=== PATIENT | male | born 1940 | race Caucasian/White ===

== ENCOUNTER 2017-07-27 13:37 | Inpatient (IN) | payer MEDICARE ==
[~2017-07-27] VITALS: Ht 172.7 cm; Wt 60.9 kg
[2017-07-27] MEDS ORDERED: BUME1TAB17 PO (13:57)
[2017-07-27] MEDS ORDERED: MEMA10TA11 PO (13:57)
[2017-07-27] MEDS ORDERED: ATOR40TA28 PO (13:57)
[2017-07-27] MEDS ORDERED: MELA5TAB3 PO (13:57)
[2017-07-27] MEDS ORDERED: LOSA50TA37 PO (13:57)
[2017-07-27] MEDS ORDERED: CITA10TA68 PO (13:57)
[2017-07-27] MEDS ORDERED: TRAM50TA4 PO (13:57)
[2017-07-27] MEDS ORDERED: DOCU250C91 PO (13:57)
[2017-07-27] MEDS ORDERED: ACET325C PR (13:57)
[2017-07-27] MEDS ORDERED: METO25XL PO (13:57)
[2017-07-27] MEDS ORDERED: ASPI-1182 PO (13:57)
[2017-07-27] MEDS ORDERED: SPIR25 PO (13:57)
[2017-07-27 15:46] LABS: BASOPHILS % (AUTO) 1.1 % (0.0-2.0); EOSINOPHILS % (AUTO) 1.9 % (1.0-6.0); HEMATOCRIT 38.6 % (41-53); HEMOGLOBIN 12.9 g/dL (13.5-17.5); LYMPHOCYTES # (AUTO) 0.6 K/uL (1.0-4.8); LYMPHOCYTES % (AUTO) 9.3 % (22.0-44.0); MEAN CORPUSCULAR HEMOGLOBIN 29.7 pg (26.0-34.0); MEAN CORPUSCULAR HGB CONC 33.3 G/dL (31.0-37.0); MEAN CORPUSCULAR VOLUME 89 fL (80-100); MONOCYTES # (AUTO) 0.7 K/uL (0.1-1.0); MONOCYTES % (AUTO) 11.6 % (2.0-9.0); NEUTROPHILS # (AUTO) 4.8 K/uL (1.8-7.7); NEUTROPHILS % (AUTO) 76.1 % (40.0-70.0); PLATELET COUNT (AUTO) 192 K/uL (150-450); RED BLOOD CELL COUNT(AUTO) 4.33 MIL/uL (4.50-5.90); RED CELL DISTRIBUTION WIDTH 19.7 % (11.5-14.5)
[2017-07-27 15:55] LABS: CREATININE 1.49 mg/dL (0.60-1.30); POTASSIUM 4.1 mmol/L (3.5-5.1)
[2017-07-27 16:00] LABS: ALBUMIN 3.2 g/dL (3.4-5.0); BILIRUBIN,TOTAL 0.8 mg/dL (0.1-1.0)
[2017-07-27 16:05] LABS: TROPONIN I 0.24 ng/mL (0.00-0.05)
[2017-07-27 16:07] LABS: APPEARANCE,URINE CLEAR (CLEAR); BILIRUBIN,URINE NEGATIVE (NEGATIVE); GLUCOSE, URINE (UA) NEGATIVE (NEGATIVE); KETONES,URINE NEGATIVE (NEGATIVE); LEUKOCYTE ESTERASE ,URINE SMALL (NEGATIVE); NITRATE,URINE NEGATIVE (NEGATIVE); OCCULT BLOOD,URINE TRACE (NEGATIVE); PROTEIN,URINE POS 1+ (NEGATIVE)
[2017-07-27 16:17] LABS: B-TYPE NATRIURETIC PEPTIDE 1540 pg/mL (0-100)
[2017-07-27 16:27] LABS: BACTERIA,URINE Rare /HPF (None Seen); SQUAMOUS EPITHELIAL CELL,UR Rare /LPF (None Seen)
[2017-07-27] MEDS ORDERED: LACTULOSE 20 GM/30 ML SOLUTION UDCUP PO ONE (16:30)
[2017-07-27] MEDS ORDERED: ASPIRIN 81 MG CHEWABLE TABLET PO ONE (16:30)
[2017-07-27] MEDS ORDERED: NITROGLYCERIN 2% (1 GM=INCH) PACKET TP ONE (17:00)
[2017-07-27] MEDS ORDERED: CIPROFLOXACIN HCL 250 MG TABLET PO ONE (17:15)
[2017-07-27] MEDS ORDERED: FUROSEMIDE 40 MG/4 ML VIAL IVP ONE (18:45)
[2017-07-27] MEDS ORDERED: ACETAMINOPHEN 325 MG TABLET PO PRN (19:00)
[2017-07-27] MEDS ORDERED: ONDANSETRON HCL 4 MG/2 ML VIAL IVP PRN ×2 (19:00→21:30)
[2017-07-27] MEDS ORDERED: 0.9% SODIUM CHLORIDE 10 ML SYRINGE IVP PRN (19:00)
[2017-07-27] MEDS ORDERED: LORazepam 2 MG/ML VIAL IVP ONE (19:30)
[2017-07-27 20:06] VITALS: BP 135/79
[2017-07-27] MEDS ORDERED: METOPROLOL TARTRATE 25 MG TABLET PO SCH (21:00)
[2017-07-27] MEDS ORDERED: BISACODYL 10 MG RECTAL RECTAL SUPPOSITORY PR PRN (21:30)
[2017-07-27] MEDS ORDERED: ALBUTEROL SULFATE 2.5 MG/0.5 ML NEB SOLUTION NEB PRN (21:30)
[2017-07-27] MEDS ORDERED: HALOPERIDOL LACTATE 5 MG/ML VIAL IM ONE (21:45)
[2017-07-27] MEDS ORDERED: SODIUM CHLORIDE 0.9% 0 ML IV ONE (21:54)
[2017-07-27] MEDS: CefTRIAXone SODIUM 1 GM in DEXTROSE 5%-WATER 10 ML IV SCH (21:56)
[2017-07-27] MEDS ORDERED: PERMETHRIN 5% 60 GM CREAM TP ONE (22:00)
[2017-07-27] MEDS: LORazepam 2 MG/ML VIAL IVP PRN (23:22)
[2017-07-27 23:41] VITALS: BP 124/82
[2017-07-28 04:00] VITALS: BP 140/96
[2017-07-28] MEDS: LORazepam 2 MG/ML VIAL IVP PRN ×4 (05:13→22:49)
[2017-07-28 07:12] LABS: EOSINOPHILS % (AUTO) 0.8 % (1.0-6.0); HEMATOCRIT 34.5 % (41-53); HEMOGLOBIN 11.4 g/dL (13.5-17.5); LYMPHOCYTES # (AUTO) 0.4 K/uL (1.0-4.8); LYMPHOCYTES % (AUTO) 6.3 % (22.0-44.0); MEAN CORPUSCULAR HEMOGLOBIN 29.4 pg (26.0-34.0); MEAN CORPUSCULAR HGB CONC 33.1 G/dL (31.0-37.0); MEAN CORPUSCULAR VOLUME 89 fL (80-100); MONOCYTES # (AUTO) 0.7 K/uL (0.1-1.0); NEUTROPHILS # (AUTO) 5.6 K/uL (1.8-7.7); NEUTROPHILS % (AUTO) 81.9 % (40.0-70.0); PLATELET COUNT (AUTO) 187 K/uL (150-450); RED BLOOD CELL COUNT(AUTO) 3.88 MIL/uL (4.50-5.90); RED CELL DISTRIBUTION WIDTH 19.6 % (11.5-14.5)
[2017-07-28 07:29] VITALS: BP 129/82
[2017-07-28 07:56] LABS: ALBUMIN 2.9 g/dL (3.4-5.0); BILIRUBIN,TOTAL 0.8 mg/dL (0.1-1.0); CALCIUM, TOTAL 8.2 mg/dL (8.8-10.5); CREATININE 1.23 mg/dL (0.60-1.30); MAGNESIUM 2.5 mg/dL (1.80-2.40); POTASSIUM 3.9 mmol/L (3.5-5.1); TOTAL PROTEIN, SERUM 7.1 g/dL (6.4-8.2)
[2017-07-28] MEDS: DOCUSATE SODIUM 100 MG CAPSULE PO SCH ×2 (09:00→21:00)
[2017-07-28] MEDS ORDERED: MEMANTINE HCL 10 MG TABLET PO SCH (09:00)
[2017-07-28] MEDS: LOSARTAN POTASSIUM 50 MG TABLET PO SCH (09:00)
[2017-07-28] MEDS: ATORVASTATIN CALCIUM 20 MG TABLET PO SCH (09:00)
[2017-07-28] MEDS: PANTOPRAZOLE SODIUM 40 MG DR TABLET PO SCH (09:00)
[2017-07-28] MEDS: ASPIRIN 81 MG CHEWABLE TABLET PO SCH (09:00)
[2017-07-28] MEDS: FUROSEMIDE 40 MG/4 ML VIAL IVP SCH (09:27)
[2017-07-28] MEDS: HEPARIN SODIUM,PORCINE 5,000 UNITS/ML VIAL SQ SCH ×2 (09:27→22:11)
[2017-07-28 10:48] VITALS: BP 156/76
[2017-07-28 15:10] VITALS: BP 139/93
[2017-07-28 19:36] VITALS: BP 158/97
[2017-07-28] MEDS: METOPROLOL TARTRATE 25 MG TABLET PO SCH (22:11)
[2017-07-28] MEDS: CefTRIAXone SODIUM 1 GM in DEXTROSE 5%-WATER 10 ML IV SCH (22:12)
[2017-07-29] VITALS (7 sets, daily range): BP systolic 115–153; BP diastolic 67–98
[2017-07-29 07:34] LABS: BASOPHILS % (AUTO) 0.9 % (0.0-2.0); EOSINOPHILS % (AUTO) 0.2 % (1.0-6.0); HEMATOCRIT 37.5 % (41-53); HEMOGLOBIN 12.5 g/dL (13.5-17.5); LYMPHOCYTES # (AUTO) 0.8 K/uL (1.0-4.8); LYMPHOCYTES % (AUTO) 9.7 % (22.0-44.0); MEAN CORPUSCULAR HEMOGLOBIN 29.5 pg (26.0-34.0); MEAN CORPUSCULAR HGB CONC 33.3 G/dL (31.0-37.0); MEAN CORPUSCULAR VOLUME 88 fL (80-100); MONOCYTES # (AUTO) 0.8 K/uL (0.1-1.0); MONOCYTES % (AUTO) 9.7 % (2.0-9.0); NEUTROPHILS # (AUTO) 6.5 K/uL (1.8-7.7); NEUTROPHILS % (AUTO) 79.5 % (40.0-70.0); PLATELET COUNT (AUTO) 209 K/uL (150-450); RED BLOOD CELL COUNT(AUTO) 4.24 MIL/uL (4.50-5.90); RED CELL DISTRIBUTION WIDTH 19.9 % (11.5-14.5)
[2017-07-29 07:57] LABS: BILIRUBIN,TOTAL 1.1 mg/dL (0.1-1.0); CALCIUM, TOTAL 8.7 mg/dL (8.8-10.5); CREATININE 1.37 mg/dL (0.60-1.30); MAGNESIUM 2.8 mg/dL (1.80-2.40); POTASSIUM 4.3 mmol/L (3.5-5.1); TOTAL PROTEIN, SERUM 7.5 g/dL (6.4-8.2)
[2017-07-29] MEDS: HEPARIN SODIUM,PORCINE 5,000 UNITS/ML VIAL SQ SCH ×2 (07:59→21:06)
[2017-07-29] MEDS: FUROSEMIDE 40 MG/4 ML VIAL IVP SCH (07:59)
[2017-07-29] MEDS: ATORVASTATIN CALCIUM 20 MG TABLET PO SCH (08:00)
[2017-07-29] MEDS: PANTOPRAZOLE SODIUM 40 MG DR TABLET PO SCH (08:00)
[2017-07-29] MEDS: LOSARTAN POTASSIUM 50 MG TABLET PO SCH (08:00)
[2017-07-29] MEDS: ASPIRIN 81 MG CHEWABLE TABLET PO SCH (08:00)
[2017-07-29] MEDS: METOPROLOL TARTRATE 25 MG TABLET PO SCH (08:00)
[2017-07-29] MEDS: DOCUSATE SODIUM 100 MG CAPSULE PO SCH ×2 (08:00→21:06)
[2017-07-29] MEDS ORDERED: METOPROLOL TARTRATE 25 MG TABLET PO ONE (08:15)
[2017-07-29] MEDS: LORazepam 2 MG/ML VIAL IVP PRN ×3 (09:00→21:09)
[2017-07-29] MEDS: METOPROLOL TARTRATE 50 MG TABLET PO SCH ×2 (09:00→21:06)
[2017-07-29] MEDS: CefTRIAXone SODIUM 1 GM in DEXTROSE 5%-WATER 10 ML IV SCH (21:12)
[2017-07-30 02:43] VITALS: BP 152/92
[2017-07-30] MEDS: LORazepam 2 MG/ML VIAL IVP PRN (02:44)
[2017-07-30 04:03] VITALS: BP 149/91
[2017-07-30 06:33] LABS: BASOPHILS % (AUTO) 1.1 % (0.0-2.0); EOSINOPHILS % (AUTO) 0.3 % (1.0-6.0); HEMATOCRIT 39.6 % (41-53); LYMPHOCYTES # (AUTO) 0.9 K/uL (1.0-4.8); LYMPHOCYTES % (AUTO) 10.3 % (22.0-44.0); MEAN CORPUSCULAR HEMOGLOBIN 28.9 pg (26.0-34.0); MEAN CORPUSCULAR HGB CONC 32.7 G/dL (31.0-37.0); MEAN CORPUSCULAR VOLUME 88 fL (80-100); MONOCYTES # (AUTO) 0.9 K/uL (0.1-1.0); MONOCYTES % (AUTO) 10.1 % (2.0-9.0); NEUTROPHILS # (AUTO) 6.9 K/uL (1.8-7.7); NEUTROPHILS % (AUTO) 78.2 % (40.0-70.0); PLATELET COUNT (AUTO) 227 K/uL (150-450); RED BLOOD CELL COUNT(AUTO) 4.48 MIL/uL (4.50-5.90)
[2017-07-30 06:56] LABS: CALCIUM, TOTAL 8.9 mg/dL (8.8-10.5); CREATININE 1.51 mg/dL (0.60-1.30); POTASSIUM 4.3 mmol/L (3.5-5.1)
[2017-07-30 07:29] VITALS: BP 138/91
[2017-07-30] MEDS: ATORVASTATIN CALCIUM 20 MG TABLET PO SCH (08:03)
[2017-07-30] MEDS: FUROSEMIDE 40 MG/4 ML VIAL IVP SCH (08:03)
[2017-07-30] MEDS: PANTOPRAZOLE SODIUM 40 MG DR TABLET PO SCH (08:03)
[2017-07-30] MEDS: HEPARIN SODIUM,PORCINE 5,000 UNITS/ML VIAL SQ SCH ×2 (08:03→21:48)
[2017-07-30] MEDS: METOPROLOL TARTRATE 50 MG TABLET PO SCH ×2 (08:03→21:48)
[2017-07-30] MEDS: DOCUSATE SODIUM 100 MG CAPSULE PO SCH ×2 (08:03→21:48)
[2017-07-30] MEDS: ASPIRIN 81 MG CHEWABLE TABLET PO SCH (08:03)
[2017-07-30 08:16] LABS: MAGNESIUM 2.9 mg/dL (1.80-2.40)
[2017-07-30] MEDS ORDERED: LOSARTAN POTASSIUM 50 MG TABLET PO SCH (09:00)
[2017-07-30 11:06] VITALS: BP 156/58
[2017-07-30] MEDS ORDERED: FUROSEMIDE 40 MG/4 ML VIAL IVP ONE (15:15)
[2017-07-30 15:31] VITALS: BP 172/75
[2017-07-30 20:41] VITALS: BP 144/89
[2017-07-30] MEDS: CefTRIAXone SODIUM 1 GM in DEXTROSE 5%-WATER 10 ML IV SCH (21:49)
[2017-07-31] VITALS (10 sets, daily range): BP systolic 132–162; BP diastolic 80–119
[2017-07-31 06:19] LABS: BASOPHILS % (AUTO) 1.4 % (0.0-2.0); EOSINOPHILS % (AUTO) 0.5 % (1.0-6.0); HEMATOCRIT 37.4 % (41-53); HEMOGLOBIN 12.3 g/dL (13.5-17.5); LYMPHOCYTES # (AUTO) 0.6 K/uL (1.0-4.8); LYMPHOCYTES % (AUTO) 7.6 % (22.0-44.0); MEAN CORPUSCULAR HEMOGLOBIN 29.3 pg (26.0-34.0); MEAN CORPUSCULAR HGB CONC 32.9 G/dL (31.0-37.0); MEAN CORPUSCULAR VOLUME 89 fL (80-100); MONOCYTES # (AUTO) 0.8 K/uL (0.1-1.0); MONOCYTES % (AUTO) 9.9 % (2.0-9.0); NEUTROPHILS # (AUTO) 6.5 K/uL (1.8-7.7); NEUTROPHILS % (AUTO) 80.6 % (40.0-70.0); PLATELET COUNT (AUTO) 220 K/uL (150-450); RED CELL DISTRIBUTION WIDTH 19.7 % (11.5-14.5)
[2017-07-31 07:03] LABS: ALBUMIN 2.7 g/dL (3.4-5.0); BILIRUBIN,TOTAL 0.8 mg/dL (0.1-1.0); CALCIUM, TOTAL 8.5 mg/dL (8.8-10.5); CREATININE 1.59 mg/dL (0.60-1.30); MAGNESIUM 2.7 mg/dL (1.80-2.40); POTASSIUM 3.7 mmol/L (3.5-5.1); TOTAL PROTEIN, SERUM 7.1 g/dL (6.4-8.2)
[2017-07-31] MEDS: ASPIRIN 81 MG CHEWABLE TABLET PO SCH (09:53)
[2017-07-31] MEDS: METOPROLOL SUCCINATE 50 MG ER TABLET PO SCH ×2 (09:53→22:32)
[2017-07-31] MEDS: DOCUSATE SODIUM 100 MG CAPSULE PO SCH ×2 (09:54→22:32)
[2017-07-31] MEDS: ATORVASTATIN CALCIUM 20 MG TABLET PO SCH (09:54)
[2017-07-31] MEDS: PANTOPRAZOLE SODIUM 40 MG DR TABLET PO SCH (09:54)
[2017-07-31] MEDS: LOSARTAN POTASSIUM 50 MG TABLET PO SCH (09:55)
[2017-07-31] MEDS: HEPARIN SODIUM,PORCINE 5,000 UNITS/ML VIAL SQ SCH ×2 (09:56→22:31)
[2017-07-31] MEDS: FUROSEMIDE 40 MG/4 ML VIAL IVP SCH (10:01)
[2017-07-31] MEDS ORDERED: DIGOXIN 250 MCG/ML 2 ML AMP IVP ONE (13:45)
[2017-07-31] MEDS ORDERED: DEXTROSE 5%-WATER 500 ML IV ONE (15:30)
[2017-07-31] MEDS: MAGNESIUM OXIDE 400 MG TABLET PO SCH (22:32)
[2017-07-31] MEDS: CefTRIAXone SODIUM 1 GM in DEXTROSE 5%-WATER 10 ML IV SCH (22:33)
[2017-08-01 04:11] VITALS: BP 118/65
[2017-08-01 06:50] LABS: BASOPHILS % (AUTO) 0.8 % (0.0-2.0); EOSINOPHILS % (AUTO) 0.9 % (1.0-6.0); HEMATOCRIT 38.3 % (41-53); HEMOGLOBIN 12.5 g/dL (13.5-17.5); LYMPHOCYTES # (AUTO) 0.6 K/uL (1.0-4.8); MEAN CORPUSCULAR HEMOGLOBIN 29.3 pg (26.0-34.0); MEAN CORPUSCULAR HGB CONC 32.6 G/dL (31.0-37.0); MEAN CORPUSCULAR VOLUME 90 fL (80-100); MONOCYTES # (AUTO) 0.7 K/uL (0.1-1.0); MONOCYTES % (AUTO) 9.2 % (2.0-9.0); NEUTROPHILS # (AUTO) 6.2 K/uL (1.8-7.7); NEUTROPHILS % (AUTO) 81.1 % (40.0-70.0); PLATELET COUNT (AUTO) 201 K/uL (150-450); RED BLOOD CELL COUNT(AUTO) 4.27 MIL/uL (4.50-5.90); RED CELL DISTRIBUTION WIDTH 19.7 % (11.5-14.5)
[2017-08-01 07:16] VITALS: BP 126/71
[2017-08-01 07:20] LABS: ALBUMIN 2.5 g/dL (3.4-5.0); BILIRUBIN,TOTAL 0.7 mg/dL (0.1-1.0); CALCIUM, TOTAL 8.4 mg/dL (8.8-10.5); CREATININE 1.48 mg/dL (0.60-1.30); MAGNESIUM 2.8 mg/dL (1.80-2.40); POTASSIUM 3.6 mmol/L (3.5-5.1); TOTAL PROTEIN, SERUM 6.6 g/dL (6.4-8.2)
[2017-08-01] MEDS ORDERED: DIGOXIN 250 MCG/ML 2 ML AMP IVP ONE (08:00)
[2017-08-01] MEDS: ASPIRIN 81 MG CHEWABLE TABLET PO SCH (08:52)
[2017-08-01] MEDS: DOCUSATE SODIUM 100 MG CAPSULE PO SCH ×2 (08:52→21:04)
[2017-08-01] MEDS: HEPARIN SODIUM,PORCINE 5,000 UNITS/ML VIAL SQ SCH ×2 (08:52→21:04)
[2017-08-01] MEDS: FUROSEMIDE 40 MG/4 ML VIAL IVP SCH (08:52)
[2017-08-01] MEDS: PANTOPRAZOLE SODIUM 40 MG DR TABLET PO SCH (08:52)
[2017-08-01] MEDS: MAGNESIUM OXIDE 400 MG TABLET PO SCH (08:52)
[2017-08-01] MEDS: METOPROLOL SUCCINATE 50 MG ER TABLET PO SCH ×2 (08:52→21:04)
[2017-08-01] MEDS: ATORVASTATIN CALCIUM 20 MG TABLET PO SCH (08:52)
[2017-08-01 10:55] VITALS: BP 132/76
[2017-08-01] MEDS: LOSARTAN POTASSIUM 50 MG TABLET PO SCH (11:47)
[2017-08-01 15:00] VITALS: BP 120/67
[2017-08-01] MEDS ORDERED: DEXTROSE 10%-WATER 500 ML IV ONE (15:00)
[2017-08-01] MEDS ORDERED: DEXTROSE 10%-WATER 500 ML IV SCH (15:15)
[2017-08-01 20:47] VITALS: BP 140/67
[2017-08-01] MEDS: CefTRIAXone SODIUM 1 GM in DEXTROSE 5%-WATER 10 ML IV SCH (22:16)
[2017-08-01 23:33] VITALS: BP 141/70
[2017-08-02 04:13] VITALS: BP 140/78
[2017-08-02 06:50] LABS: BASOPHILS % (AUTO) 0.7 % (0.0-2.0); EOSINOPHILS % (AUTO) 1.4 % (1.0-6.0); HEMATOCRIT 40.7 % (41-53); HEMOGLOBIN 13.2 g/dL (13.5-17.5); LYMPHOCYTES # (AUTO) 0.8 K/uL (1.0-4.8); LYMPHOCYTES % (AUTO) 9.7 % (22.0-44.0); MEAN CORPUSCULAR HEMOGLOBIN 29.2 pg (26.0-34.0); MEAN CORPUSCULAR HGB CONC 32.5 G/dL (31.0-37.0); MEAN CORPUSCULAR VOLUME 90 fL (80-100); MONOCYTES # (AUTO) 0.6 K/uL (0.1-1.0); MONOCYTES % (AUTO) 7.6 % (2.0-9.0); NEUTROPHILS # (AUTO) 6.5 K/uL (1.8-7.7); NEUTROPHILS % (AUTO) 80.6 % (40.0-70.0); PLATELET COUNT (AUTO) 205 K/uL (150-450); RED BLOOD CELL COUNT(AUTO) 4.52 MIL/uL (4.50-5.90)
[2017-08-02 07:21] VITALS: BP 141/78
[2017-08-02 07:27] LABS: ALBUMIN 2.5 g/dL (3.4-5.0); BILIRUBIN,TOTAL 0.8 mg/dL (0.1-1.0); CALCIUM, TOTAL 8.6 mg/dL (8.8-10.5); CREATININE 1.39 mg/dL (0.60-1.30); MAGNESIUM 2.8 mg/dL (1.80-2.40); POTASSIUM 3.8 mmol/L (3.5-5.1); TOTAL PROTEIN, SERUM 6.9 g/dL (6.4-8.2)
[2017-08-02] MEDS: ASPIRIN 81 MG CHEWABLE TABLET PO SCH (08:37)
[2017-08-02] MEDS: DOCUSATE SODIUM 100 MG CAPSULE PO SCH ×2 (08:38→19:53)
[2017-08-02] MEDS: ATORVASTATIN CALCIUM 20 MG TABLET PO SCH (08:38)
[2017-08-02] MEDS: PANTOPRAZOLE SODIUM 40 MG DR TABLET PO SCH (08:38)
[2017-08-02] MEDS: METOPROLOL SUCCINATE 50 MG ER TABLET PO SCH ×2 (08:38→19:54)
[2017-08-02] MEDS: HEPARIN SODIUM,PORCINE 5,000 UNITS/ML VIAL SQ SCH ×2 (08:40→19:53)
[2017-08-02] MEDS: FUROSEMIDE 40 MG/4 ML VIAL IVP SCH (08:40)
[2017-08-02] MEDS: LOSARTAN POTASSIUM 50 MG TABLET PO SCH (08:41)
[2017-08-02 11:00] VITALS: BP 153/87
[2017-08-02] MEDS: LORazepam 2 MG/ML VIAL IVP PRN ×2 (11:10→19:54)
[2017-08-02 14:47] VITALS: BP 161/97
[2017-08-02 19:26] VITALS: BP 150/78
[2017-08-02] MEDS: CefTRIAXone SODIUM 1 GM in DEXTROSE 5%-WATER 10 ML IV SCH (19:54)
[2017-08-03 00:06] VITALS: BP 158/91
[2017-08-03 05:06] VITALS: BP 148/89
[2017-08-03 07:22] VITALS: BP 159/80
[2017-08-03] MEDS: LOSARTAN POTASSIUM 50 MG TABLET PO SCH (08:42)
[2017-08-03] MEDS: HEPARIN SODIUM,PORCINE 5,000 UNITS/ML VIAL SQ SCH ×2 (08:42→22:19)
[2017-08-03] MEDS: METOPROLOL SUCCINATE 50 MG ER TABLET PO SCH ×2 (08:42→22:18)
[2017-08-03] MEDS: ATORVASTATIN CALCIUM 20 MG TABLET PO SCH (08:43)
[2017-08-03] MEDS: FUROSEMIDE 40 MG TABLET PO SCH (08:43)
[2017-08-03] MEDS: DOCUSATE SODIUM 100 MG CAPSULE PO SCH ×2 (08:43→22:18)
[2017-08-03] MEDS: PANTOPRAZOLE SODIUM 40 MG DR TABLET PO SCH (08:43)
[2017-08-03] MEDS: ASPIRIN 81 MG CHEWABLE TABLET PO SCH (08:43)
[2017-08-03 11:01] VITALS: BP 132/68
[2017-08-03 15:25] VITALS: BP 127/70
[2017-08-03 19:56] VITALS: BP 151/92
[2017-08-03] MEDS: CefTRIAXone SODIUM 1 GM in DEXTROSE 5%-WATER 10 ML IV SCH (22:19)
[2017-08-04] VITALS (8 sets, daily range): BP systolic 119–159; BP diastolic 79–109
[2017-08-04] MEDS: PANTOPRAZOLE SODIUM 40 MG DR TABLET PO SCH (08:05)
[2017-08-04] MEDS: HEPARIN SODIUM,PORCINE 5,000 UNITS/ML VIAL SQ SCH ×2 (08:05→20:34)
[2017-08-04] MEDS: ASPIRIN 81 MG CHEWABLE TABLET PO SCH (08:05)
[2017-08-04] MEDS: FUROSEMIDE 40 MG TABLET PO SCH (08:05)
[2017-08-04] MEDS: LOSARTAN POTASSIUM 50 MG TABLET PO SCH (08:05)
[2017-08-04] MEDS: ATORVASTATIN CALCIUM 20 MG TABLET PO SCH (08:06)
[2017-08-04] MEDS: METOPROLOL SUCCINATE 50 MG ER TABLET PO SCH ×2 (08:06→20:34)
[2017-08-04] MEDS: DOCUSATE SODIUM 100 MG CAPSULE PO SCH ×2 (08:06→20:34)
[2017-08-04] MEDS: LORazepam 2 MG/ML VIAL IVP PRN ×2 (17:06→20:35)
[2017-08-04] MEDS: CefTRIAXone SODIUM 1 GM in DEXTROSE 5%-WATER 10 ML IV SCH (21:49)
[2017-08-05 03:57] VITALS: BP 153/74
[2017-08-05] MEDS: ACETAMINOPHEN 325 MG TABLET PO PRN ×2 (04:10→08:35)
[2017-08-05 07:11] LABS: BASOPHILS % (AUTO) 0.4 % (0.0-2.0); EOSINOPHILS % (AUTO) 0.3 % (1.0-6.0); HEMATOCRIT 49.8 % (41-53); HEMOGLOBIN 16.1 g/dL (13.5-17.5); LYMPHOCYTES # (AUTO) 0.9 K/uL (1.0-4.8); LYMPHOCYTES % (AUTO) 6.7 % (22.0-44.0); MEAN CORPUSCULAR HEMOGLOBIN 29.3 pg (26.0-34.0); MEAN CORPUSCULAR HGB CONC 32.2 G/dL (31.0-37.0); MEAN CORPUSCULAR VOLUME 91 fL (80-100); MONOCYTES # (AUTO) 0.9 K/uL (0.1-1.0); MONOCYTES % (AUTO) 6.8 % (2.0-9.0); NEUTROPHILS # (AUTO) 11.6 K/uL (1.8-7.7); PLATELET COUNT (AUTO) 222 K/uL (150-450); RED BLOOD CELL COUNT(AUTO) 5.48 MIL/uL (4.50-5.90); RED CELL DISTRIBUTION WIDTH 20.7 % (11.5-14.5)
[2017-08-05 07:14] LABS: NEUTROPHILS % (AUTO) 85.8 % (40.0-70.0)
[2017-08-05 07:23] VITALS: BP 146/60
[2017-08-05 07:46] LABS: CALCIUM, TOTAL 9.1 mg/dL (8.8-10.5); CREATININE 1.47 mg/dL (0.60-1.30); POTASSIUM 3.7 mmol/L (3.5-5.1)
[2017-08-05] MEDS: HEPARIN SODIUM,PORCINE 5,000 UNITS/ML VIAL SQ SCH ×2 (08:33→20:00)
[2017-08-05] MEDS: ASPIRIN 81 MG CHEWABLE TABLET PO SCH (08:34)
[2017-08-05] MEDS: METOPROLOL SUCCINATE 50 MG ER TABLET PO SCH ×2 (08:34→20:00)
[2017-08-05] MEDS: DOCUSATE SODIUM 100 MG CAPSULE PO SCH ×2 (08:34→20:00)
[2017-08-05] MEDS: LOSARTAN POTASSIUM 50 MG TABLET PO SCH (08:34)
[2017-08-05] MEDS: ATORVASTATIN CALCIUM 20 MG TABLET PO SCH (08:34)
[2017-08-05] MEDS: PANTOPRAZOLE SODIUM 40 MG DR TABLET PO SCH (08:35)
[2017-08-05 11:17] VITALS: BP 151/75
[2017-08-05] MEDS ORDERED: DEXTROSE 5%-WATER 1,000 ML IV ONE (14:15)
[2017-08-05] MEDS ORDERED: VANCOMYCIN HCL 1 GM/D5% WATER 200 ML IV ONE (14:45)
[2017-08-05 15:27] VITALS: BP 138/87
[2017-08-05 19:41] VITALS: BP 162/95
[2017-08-05 23:53] VITALS: BP 132/88
[2017-08-06 04:52] VITALS: BP 131/78
[2017-08-06] MEDS: ACETAMINOPHEN 650 MG RECTAL SUPPOSITORY PR PRN ×2 (05:35→11:34)
[2017-08-06 06:25] LABS: BASOPHILS % (AUTO) 0.1 % (0.0-2.0); EOSINOPHILS % (AUTO) 0.1 % (1.0-6.0); HEMATOCRIT 52.9 % (41-53); HEMOGLOBIN 16.9 g/dL (13.5-17.5); LYMPHOCYTES # (AUTO) 0.5 K/uL (1.0-4.8); LYMPHOCYTES % (AUTO) 3.2 % (22.0-44.0); MEAN CORPUSCULAR HEMOGLOBIN 29.2 pg (26.0-34.0); MEAN CORPUSCULAR HGB CONC 31.9 G/dL (31.0-37.0); MEAN CORPUSCULAR VOLUME 91 fL (80-100); MONOCYTES # (AUTO) 0.9 K/uL (0.1-1.0); MONOCYTES % (AUTO) 5.4 % (2.0-9.0); NEUTROPHILS # (AUTO) 14.9 K/uL (1.8-7.7); RED BLOOD CELL COUNT(AUTO) 5.79 MIL/uL (4.50-5.90); RED CELL DISTRIBUTION WIDTH 20.4 % (11.5-14.5)
[2017-08-06 06:40] LABS: NEUTROPHILS % (AUTO) 91.2 % (40.0-70.0)
[2017-08-06 06:42] LABS: ALBUMIN 2.7 g/dL (3.4-5.0); BILIRUBIN,TOTAL 1.4 mg/dL (0.1-1.0); CALCIUM, TOTAL 8.9 mg/dL (8.8-10.5); CREATININE 1.82 mg/dL (0.60-1.30); MAGNESIUM 2.6 mg/dL (1.80-2.40); POTASSIUM 4.3 mmol/L (3.5-5.1); TOTAL PROTEIN, SERUM 8.5 g/dL (6.4-8.2)
[2017-08-06 07:26] VITALS: BP 106/49
[2017-08-06] MEDS ORDERED: VANCOMYCIN HCL 750 MG in DEXTROSE 5%-WATER 250 ML IV SCH (08:00)
[2017-08-06 08:10] LABS: PLATELET COUNT (AUTO) 207 K/uL (150-450)
[2017-08-06] MEDS: LOSARTAN POTASSIUM 50 MG TABLET PO SCH (08:19)
[2017-08-06] MEDS: ASPIRIN 81 MG CHEWABLE TABLET PO SCH (08:19)
[2017-08-06] MEDS: ATORVASTATIN CALCIUM 20 MG TABLET PO SCH (08:19)
[2017-08-06] MEDS: DOCUSATE SODIUM 100 MG CAPSULE PO SCH ×2 (08:19→20:24)
[2017-08-06] MEDS: PANTOPRAZOLE SODIUM 40 MG DR TABLET PO SCH (08:19)
[2017-08-06] MEDS: HEPARIN SODIUM,PORCINE 5,000 UNITS/ML VIAL SQ SCH ×2 (08:19→20:55)
[2017-08-06] MEDS: METOPROLOL SUCCINATE 50 MG ER TABLET PO SCH ×2 (08:20→20:23)
[2017-08-06 11:11] VITALS: BP 110/65
[2017-08-06] MEDS ORDERED: OXYC5SOL17 PO (11:12)
[2017-08-06] MEDS ORDERED: VANCOMYCIN IV (11:15)
[2017-08-06 14:50] VITALS: BP 111/58
[2017-08-06 19:40] VITALS: BP 142/92
[2017-08-06 23:41] VITALS: BP 100/50
[2017-08-07 04:47] VITALS: BP 115/54
[2017-08-07 06:28] LABS: BASOPHILS % (AUTO) 0.1 % (0.0-2.0); EOSINOPHILS % (AUTO) 0.1 % (1.0-6.0); HEMATOCRIT 50.2 % (41-53); HEMOGLOBIN 16.4 g/dL (13.5-17.5); LYMPHOCYTES # (AUTO) 0.8 K/uL (1.0-4.8); LYMPHOCYTES % (AUTO) 5.1 % (22.0-44.0); MEAN CORPUSCULAR HEMOGLOBIN 29.6 pg (26.0-34.0); MEAN CORPUSCULAR HGB CONC 32.7 G/dL (31.0-37.0); MEAN CORPUSCULAR VOLUME 91 fL (80-100); MONOCYTES # (AUTO) 0.8 K/uL (0.1-1.0); MONOCYTES % (AUTO) 5.5 % (2.0-9.0); NEUTROPHILS # (AUTO) 13.4 K/uL (1.8-7.7); PLATELET COUNT (AUTO) 188 K/uL (150-450); RED BLOOD CELL COUNT(AUTO) 5.54 MIL/uL (4.50-5.90); RED CELL DISTRIBUTION WIDTH 20.3 % (11.5-14.5)
[2017-08-07 06:46] LABS: ALBUMIN 2.5 g/dL (3.4-5.0); BILIRUBIN,TOTAL 1.1 mg/dL (0.1-1.0); CREATININE 2.61 mg/dL (0.60-1.30); MAGNESIUM 3.1 mg/dL (1.80-2.40); POTASSIUM 3.6 mmol/L (3.5-5.1); TOTAL PROTEIN, SERUM 8.1 g/dL (6.4-8.2)
[2017-08-07 07:07] LABS: NEUTROPHILS % (AUTO) 89.2 % (40.0-70.0)
[2017-08-07 07:13] VITALS: BP 109/60
[2017-08-07] MEDS ORDERED: VANCOMYCIN HCL 1 GM/D5% WATER 200 ML IV SCH (08:00)
[2017-08-07] MEDS: LOSARTAN POTASSIUM 50 MG TABLET PO SCH (08:34)
[2017-08-07] MEDS: ASPIRIN 81 MG CHEWABLE TABLET PO SCH (08:34)
[2017-08-07] MEDS: DOCUSATE SODIUM 100 MG CAPSULE PO SCH ×2 (08:34→19:46)
[2017-08-07] MEDS: ATORVASTATIN CALCIUM 20 MG TABLET PO SCH (08:35)
[2017-08-07] MEDS: METOPROLOL SUCCINATE 50 MG ER TABLET PO SCH (08:35)
[2017-08-07] MEDS: PANTOPRAZOLE SODIUM 40 MG DR TABLET PO SCH (08:35)
[2017-08-07] MEDS: HEPARIN SODIUM,PORCINE 5,000 UNITS/ML VIAL SQ SCH ×2 (08:35→19:47)
[2017-08-07] MEDS: DEXTROSE 5%-0.45% SODIUM CHL 1,000 ML IV SCH (08:58)
[2017-08-07 11:28] VITALS: BP 109/60
[2017-08-07 15:26] VITALS: BP 135/69
[2017-08-07 17:23] VITALS: BP 124/86
[2017-08-07 20:10] VITALS: BP 133/77
[2017-08-08] VITALS (7 sets, daily range): BP systolic 105–136; BP diastolic 57–73
[2017-08-08] MEDS: DEXTROSE 5%-0.45% SODIUM CHL 1,000 ML IV SCH ×2 (04:00→17:39)
[2017-08-08 07:36] LABS: BASOPHILS % (AUTO) 0.2 % (0.0-2.0); EOSINOPHILS % (AUTO) 0 % (1.0-6.0); HEMATOCRIT 48.8 % (41-53); HEMOGLOBIN 15.6 g/dL (13.5-17.5); LYMPHOCYTES # (AUTO) 0.5 K/uL (1.0-4.8); LYMPHOCYTES % (AUTO) 2.8 % (22.0-44.0); MEAN CORPUSCULAR HEMOGLOBIN 29.3 pg (26.0-34.0); MEAN CORPUSCULAR HGB CONC 31.9 G/dL (31.0-37.0); MEAN CORPUSCULAR VOLUME 92 fL (80-100); MONOCYTES # (AUTO) 0.8 K/uL (0.1-1.0); MONOCYTES % (AUTO) 4.7 % (2.0-9.0); NEUTROPHILS # (AUTO) 15.9 K/uL (1.8-7.7); PLATELET COUNT (AUTO) 150 K/uL (150-450); RED BLOOD CELL COUNT(AUTO) 5.32 MIL/uL (4.50-5.90); RED CELL DISTRIBUTION WIDTH 20.8 % (11.5-14.5)
[2017-08-08 07:45] LABS: NEUTROPHILS % (AUTO) 92.3 % (40.0-70.0)
[2017-08-08 07:59] LABS: ALBUMIN 2.1 g/dL (3.4-5.0); CALCIUM, TOTAL 8.6 mg/dL (8.8-10.5); CREATININE 2.89 mg/dL (0.60-1.30); MAGNESIUM 3.4 mg/dL (1.80-2.40); POTASSIUM 3.8 mmol/L (3.5-5.1); TOTAL PROTEIN, SERUM 7.5 g/dL (6.4-8.2)
[2017-08-08 08:17] LABS: VANCOMYCIN,RANDOM 18.3 mcg/mL (25.0-50.0)
[2017-08-08] MEDS: PANTOPRAZOLE SODIUM 40 MG DR TABLET PO SCH (09:00)
[2017-08-08] MEDS: DOCUSATE SODIUM 100 MG CAPSULE PO SCH ×2 (09:00→19:36)
[2017-08-08] MEDS: HEPARIN SODIUM,PORCINE 5,000 UNITS/ML VIAL SQ SCH ×2 (10:10→19:37)
[2017-08-08] MEDS ORDERED: ONDANSETRON HCL 4 MG/2 ML VIAL IVP PRN (14:30)
[2017-08-08] MEDS ORDERED: DiphenhydrAMINE HCL 50 MG/ML VIAL IVP PRN (14:30)
[2017-08-09 05:04] VITALS: BP 120/69
[2017-08-09 08:32] VITALS: BP 136/77
[2017-08-09] MEDS: DEXTROSE 5%-0.45% SODIUM CHL 1,000 ML IV SCH ×2 (08:36→19:50)
[2017-08-09] MEDS: PANTOPRAZOLE SODIUM 40 MG DR TABLET PO SCH (09:00)
[2017-08-09] MEDS: HEPARIN SODIUM,PORCINE 5,000 UNITS/ML VIAL SQ SCH ×2 (09:00→19:51)
[2017-08-09] MEDS: DOCUSATE SODIUM 100 MG CAPSULE PO SCH ×2 (09:00→20:14)
[2017-08-09] MEDS: MORPHINE SULFATE 100 MG/NS/PF 100 ML IV PRN (09:40)
[2017-08-09 12:00] VITALS: BP 127/65
[2017-08-09] MEDS: MORPHINE SULFATE 4 MG/ML SYRINGE IVP PRN ×2 (12:17→19:26)
[2017-08-09] MEDS: OXYGEN THERAPY IH SCH (13:03)
[2017-08-09 15:28] VITALS: BP 99/53
[2017-08-09 19:40] VITALS: BP 110/60
[2017-08-09] MEDS: ACETAMINOPHEN 650 MG RECTAL SUPPOSITORY PR PRN (19:50)
[2017-08-09 23:50] VITALS: BP 97/50
[2017-08-10] VITALS (8 sets, daily range): BP systolic 84–96; BP diastolic 45–51
[2017-08-10] MEDS: OXYGEN THERAPY IH SCH ×2 (00:09→20:39)
[2017-08-10] MEDS: ACETAMINOPHEN 650 MG RECTAL SUPPOSITORY PR PRN ×2 (00:09→05:20)
[2017-08-10] MEDS: PANTOPRAZOLE SODIUM 40 MG DR TABLET PO SCH (09:00)
[2017-08-10] MEDS: DOCUSATE SODIUM 100 MG CAPSULE PO SCH ×2 (09:00→20:07)
[2017-08-10] MEDS: DEXTROSE 5%-0.45% SODIUM CHL 1,000 ML IV SCH ×2 (09:50→23:27)
[2017-08-10] MEDS: HEPARIN SODIUM,PORCINE 5,000 UNITS/ML VIAL SQ SCH ×2 (09:51→20:39)
[2017-08-10] MEDS: MORPHINE SULFATE 4 MG/ML SYRINGE IVP PRN (18:21)
[2017-08-10] MEDS: MORPHINE SULFATE 100 MG/NS/PF 100 ML IV PRN (20:37)
[2017-08-11 04:21] VITALS: BP 89/36
[2017-08-11 08:01] VITALS: BP 91/39
[2017-08-11] MEDS: DOCUSATE SODIUM 100 MG CAPSULE PO SCH (09:00)
[2017-08-11] MEDS: PANTOPRAZOLE SODIUM 40 MG DR TABLET PO SCH (09:00)
[2017-08-11] MEDS: HEPARIN SODIUM,PORCINE 5,000 UNITS/ML VIAL SQ SCH (09:22)
[2017-08-11] MEDS: OXYGEN THERAPY IH SCH (09:28)
[2017-08-11] MEDS: MORPHINE SULFATE 4 MG/ML SYRINGE IVP PRN (11:04)
[2017-08-11 11:25] VITALS: BP 82/37
[2017-08-11] MEDS: ACETAMINOPHEN 650 MG RECTAL SUPPOSITORY PR PRN (12:53)
[2017-08-11] MEDS: DEXTROSE 5%-0.45% SODIUM CHL 1,000 ML IV SCH (12:54)
[2017-08-11 15:03] VITALS: BP 65/39
== END 2017-08-11 16:25 | disposition expired ==
LOC: EMS 13:38 → 5S 18:47 → 6N 08-07 17:10
PROVIDERS: ADMIT Internal Medicine; ATTEND Internal Medicine
PROC: 5A09557 Assistance with Respiratory Ventilation, Greater than 96 Consecutive Hours, Continuous Positive Airway Pressure (ICD-10-PCS; principal; 2017-07-28)
PROC: 5A09457 Assistance with Respiratory Ventilation, 24-96 Consecutive Hours, Continuous Positive Airway Pressure (ICD-10-PCS; 2017-08-06)
DX: I13.0 Hypertensive heart and chronic kidney disease with heart failure and stage 1 through stage 4 chronic kidney disease, or unspecified chronic kidney disease (principal); A41.9 Sepsis, unspecified organism; I21.4 Non-ST elevation (NSTEMI) myocardial infarction; I50.23 Acute on chronic systolic (congestive) heart failure; J96.01 Acute respiratory failure with hypoxia; N17.0 Acute kidney failure with tubular necrosis; E43 Unspecified severe protein-calorie malnutrition; N39.0 Urinary tract infection, site not specified; I48.92 Unspecified atrial flutter; E87.0 Hyperosmolality and hypernatremia; I47.1 Supraventricular tachycardia; I47.2 Ventricular tachycardia; G30.9 Alzheimer's disease, unspecified; F02.80 Dementia in other diseases classified elsewhere, unspecified severity, without behavioral disturbance, psychotic disturbance, mood disturbance, and anxiety; N18.9 Chronic kidney disease, unspecified; I48.2 Chronic atrial fibrillation; E78.00 Pure hypercholesterolemia, unspecified; Z96.649 Presence of unspecified artificial hip joint; E78.5 Hyperlipidemia, unspecified; G47.33 Obstructive sleep apnea (adult) (pediatric); E83.42 Hypomagnesemia; I25.5 Ischemic cardiomyopathy; I25.10 Atherosclerotic heart disease of native coronary artery without angina pectoris; R62.7 Adult failure to thrive; B95.2 Enterococcus as the cause of diseases classified elsewhere; Z66 Do not resuscitate; Z51.5 Encounter for palliative care; I25.2 Old myocardial infarction; Z79.82 Long term (current) use of aspirin; Z79.899 Other long term (current) drug therapy; Z68.20 Body mass index [BMI] 20.0-20.9, adult; Z78.1 Physical restraint status
CPT/HCPCS: 70450; 83735; 87081; 87086; 92526; 92610; 93005; 93306; 94660; 96374; 96375; 99285; G0480; J0696; J1160; J1630; J1644; J1940; J2060; J2270; J3370; J7050; J7060